=== PATIENT | male | born 1950 | race Caucasian/White ===

== ENCOUNTER 2017-11-27 12:20 | Emergency (ER) | payer OTHER ==
[~2017-11-27] VITALS: Ht 165.1 cm; Wt 100.0 kg
[~2017-11-27 12:20] MED LIST: AMOX875 PO; ENAL2.5 PO; FLON0.053; GUAI100S6 PO; INSU100V2 IJ; LOPI600T PO; NOVONP2 SQ
[2017-11-27 12:21] VITALS: BP 184/93; PULSE 98; RESP 18; TEMP 98.8; O2SAT 94
[2017-11-27 12:57] LABS: AUTOMATED NEUTROPHIL # 5.4 TH/MM3 (1.8-7.7); BASOPHIL % 0.5 % (0.0-2.0); EOSINOPHIL # 0.2 TH/MM3 (0-0.4); EOSINOPHIL % 2.6 % (0.0-4.0); HEMATOCRIT 37.3 % (39.0-51.0); HEMOGLOBIN 12.6 GM/DL (13.0-17.0); LYMPH % 17.6 % (9.0-44.0); LYMPHOCYTE # 1.3 TH/MM3 (1.0-4.8); MEAN CELL VOLUME 88.7 FL (80.0-100.0); MEAN CORPUSCULAR HGB CONC 33.8 % (32.0-36.0); MEAN PLATELET VOLUME 8.1 FL (7.0-11.0); MONO % 6.2 % (0.0-8.0); MONOCYTE # 0.5 TH/MM3 (0-0.9); NEUT % 73.1 % (16.0-70.0); PLATELET COUNT 295 TH/MM3 (150-450); RED CELL DISTRIBUTION WIDTH 13.5 % (11.6-17.2); WHITE BLOOD COUNT 7.4 TH/MM3 (4.0-11.0)
--- NOTE | 2017-11-27 13:00 | RADRPT ---
EXAM DATE/TIME: 11/27/2017 12:46 [facility] COMPARISON: No previous studies available for comparison. INDICATIONS : Shortness of breath. MEDICAL HISTORY : Hypertension. Hypercholesterolemia. Diabetes mellitus type II. SURGICAL HISTORY : None. ENCOUNTER: Initial ACUITY: 3 days PAIN SCORE: 0/10 LOCATION: Bilateral chest FINDINGS: Frontal and lateral view of the chest demonstrate some patchy opacities in the infrahilar region bila terally without focal consolidation. The remainder of the lungs are clear. The heart is normal in siz e. Both hemidiaphragms are well delineated. No evidence of new. Mild degenerative changes in the midt horacic spine. CONCLUSION: Mild air space opacities in the infrahilar region bilaterally without focal areas of consolidation. Al Dubon MD on November 27, 2017 at 12:56 Board Certified Radiologist. This report was verified electronically.
[2017-11-27 13:04] LABS: PROTHROMBIN TIME - PATIENT 10.3 SEC (9.8-11.6)
[2017-11-27 13:12] LABS: BICARBONATE 29.3 MEQ/L (21.0-32.0); BLOOD UREA NITROGEN 32 MG/DL (7-18); CALCIUM 9.8 MG/DL (8.5-10.1); CHLORIDE 93 MEQ/L (98-107); CREATININE 2.37 MG/DL (0.60-1.30); GLOMERULAR FILTRATION RATE 28 ML/MIN (>89); SODIUM (NA) 128 MEQ/L (136-145)
[2017-11-27 13:17] LABS: BILIRUBIN, URINE NEG (NEG); BLOOD, URINE TRACE (NEG); GLUCOSE,URINE 1000 mg/dL (NEG); KETONE, URINE NEG (NEG); NITRITE,URINE NEG (NEG); PH, URINE 5.5 (5.0-8.5); URINE COLOR LIGHT-YELLOW (YELLW/STRAW); URINE LEUKOCYTE ESTERASE NEG (NEG)
[2017-11-27 13:24] LABS: GLUCOSE,RANDOM 688 MG/DL (74-106)
[2017-11-27 13:32] LABS: TROPONIN I LESS THAN 0.02 NG/ML (0.02-0.05)
[2017-11-27 13:57] VITALS: BP 148/77; PULSE 88; RESP 15; O2SAT 95
[2017-11-27] MEDS ORDERED: SODIUM CHLOR 0.9% 1000 ML INJ 1,000 ML IV ONE ×3 (14:15)
[2017-11-27] MEDS ORDERED: CALCIUM CHLORIDE 10% SOLN 1 GRAM/10 ML SYR IV PUSH ONE (14:15)
[2017-11-27] MEDS ORDERED: INSULIN HUMAN REGULAR 1,000 UNITS/10 ML VIAL SQ ONE (14:15)
--- NOTE | 2017-11-27 14:28 | RADRPT ---
EXAM DATE/TIME: 11/27/2017 14:11 [facility] COMPARISON: No previous studies available for comparison. INDICATIONS : Intertittent memory loss for 5 months. RADIATION DOSE: 38.56 CTDIvol (mGy) MEDICAL HISTORY : Cardiovascular disease. Hypertension. Diabetes SURGICAL HISTORY : None. ENCOUNTER: Initial ACUITY: 4 - 6 months PAIN SCALE: 0/10 LOCATION: cranial TECHNIQUE: Multiple contiguous axial images were obtained of the head. Using automated exposure control and adj ustment of the mA and/or kV according to patient size, radiation dose was kept as low as reasonably a chievable to obtain optimal diagnostic quality images. DICOM format image data is available electro nically for review and comparison. FINDINGS: Noncontrast axial head CT demonstrates the ventricles to be normal in size and configuration with a n ormal sulcal pattern. No acute intracranial hemorrhage, acute cortical infarction, mass or midline sh ift is seen. Posterior fossa structures are unremarkable with the exception of a prominent cisterna m agna. Bone windows are unremarkable. CONCLUSION: 1. No evidence of acute intracranial pathology. No masses are identified. Viraj Mak MD on November 27, 2017 at 14:23 Board Certified Radiologist. This report was verified electronically.
[2017-11-27] MEDS ORDERED: GEMF600 PO (14:34)
[2017-11-27] MEDS ORDERED: LANTINJ SQ (14:34)
[2017-11-27] MEDS ORDERED: OMEP20TA93 PO (14:34)
[2017-11-27] MEDS ORDERED: LATA.005%O EACH EYE (14:34)
[2017-11-27] MEDS ORDERED: GABA300C5 PO (14:34)
[2017-11-27] MEDS ORDERED: LOSA100T PO (14:34)
[2017-11-27] MEDS ORDERED: ASPI81TA16 PO (14:34)
[2017-11-27] MEDS ORDERED: TERA5CAP3 PO (14:34)
[2017-11-27] MEDS ORDERED: NOVOINJ3 SQ ×2 (14:34)
[2017-11-27] MEDS ORDERED: MOBI7.5T PO (14:34)
[2017-11-27] MEDS ORDERED: MECL-62 PO (14:34)
[2017-11-27] MEDS ORDERED: BACL10TA PO (14:34)
--- NOTE | 2017-11-27 14:46 | PD ---
HPI Chief Complaint: Abnormal Results Time Seen by Provider: 14:07 Travel History International Travel<30 days: No Contact w/Intl Traveler<30days: No Traveled to known affect area: No History of Present Illness HPI 67-year-old male came to the emergency room with history of confusion. As per the patient his girlfriend brought him in but the girlfriend is currently not here. She left him in triage and went home. There was blood work initiated in triage before patient came to the emergency room. He has a history of diabetes. He has been very irritable and irate and not very forthcoming with history. Vital signs otherwise stable. PFSH Past Medical History Narrative Medical List of his past medical, surgical, social and family history is reviewed from the nursing note Hx Anticoagulant Therapy: Yes Cardiovascular Problems: Yes High Cholesterol: Yes Diabetes: Yes Hypertension: Yes Musculoskeletal: Yes Social History Alcohol Use: Yes (OCCASSIONAL) Tobacco Use: No Substance Use: No Allergies-Medications (Allergen,Severity, Reaction): Coded Allergies: No Known Allergies (Verified Adverse Reaction, Unknown, 11/27/17) Comments No known drug allergies. Reported Meds & Prescriptions Reported Meds & Active Scripts Active Reported Losartan (Losartan Potassium) 100 Mg Tab 100 Mg PO DAILY Xalatan Opth Drops (Latanoprost) 0.005% Drops 1 Drop EACH EYE HS Gabapentin 300 Mg Cap 300 Mg PO TID Lopid (Gemfibrozil) 600 Mg Tab 600 Mg PO BIDAC Take 30 minutes prior to breakfast and dinner Mobic (Meloxicam) 7.5 Mg Tab 7.5 Mg PO DAILY Aspirin Adult Low Strength (Aspirin) 81 Mg Tabdr 81 Mg PO DAILY Terazosin (Terazosin HCl) 5 Mg Cap 5 Mg PO HS Lantus Solostar Pen Inj (Insulin Glargine) 300 Unit/3 Ml Pen 80 Units SQ BID Novolog Flexpen Inj (Insulin Aspart) 300 Unit/3 Ml Pen 25 Units SQ AT NOON Novolog Flexpen Inj (Insulin Aspart) 300 Unit/3 Ml Pen 45 Units SQ IN THE AM AND THE PM Omeprazole 20 Mg Tab 20 Mg PO DAILY Baclofen 10 Mg Tab 10 Mg PO TID Meclizine (Meclizine HCl) 25 Mg Tab 25 Mg PO TID PRN Narrative Medication List of his home medications reviewed from the nursing note. Review of Systems Except as stated in HPI: all other systems reviewed are Neg Physical Exam Narrative GENERAL: Awake, confused, obese, no obvious distress SKIN: Focused skin assessment warm/dry. HEAD: Atraumatic. Normocephalic. EYES: Pupils equal and round. No scleral icterus. No injection or drainage. ENT: No nasal bleeding or discharge. Mucous membranes pink and moist. NECK: Trachea midline. No JVD. CARDIOVASCULAR: Regular rate and rhythm. No murmur appreciated. RESPIRATORY: No accessory muscle use. Clear to auscultation. Breath sounds equal bilaterally. GASTROINTESTINAL: Abdomen soft, non-tender, nondistended. Hepatic and splenic margins not palpable. MUSCULOSKELETAL: No obvious deformities. No clubbing. No cyanosis. No edema. NEUROLOGICAL: Awake and alert. No obvious cranial nerve deficits. Motor grossly within normal limits. Normal speech. PSYCHIATRIC: Appropriate mood and affect; insight and judgment normal. Data Data Last Documented VS Orders Orders Electrocardiogram (11/27/17 12:29) Basic Metabolic Panel (Bmp) (11/27/17 12:29) Complete Blood Count With Diff (11/27/17 12:29) Creatine Kinase (Cpk) (11/27/17 12:29) Prothrombin Time / Inr (Pt) (11/27/17 12:29) Act Partial Throm Time (Ptt) (11/27/17 12:29) Troponin I (11/27/17 12:29) Thyroid Stimulating Hormone (11/27/17 12:29) Urinalysis - C+S If Indicated (11/27/17 12:29) Ct Brain W/O Iv Contrast(Rout) (11/27/17 12:29) Chest, Pa & Lat (11/27/17 ) Sodium Chlor 0.9% 1000 Ml Inj (Ns 1000 M (11/27/17 14:15) Sodium Chlor 0.9% 1000 Ml Inj (Ns 1000 M (11/27/17 14:15) Sodium Chlor 0.9% 1000 Ml Inj (Ns 1000 M (11/27/17 14:15) Insulin Human Regular Inj (Novolin R Inj (11/27/17 14:15) Calcium Chloride Inj (Calcium Chloride I (11/27/17 14:15) Labs Laboratory Tests Test 11/27/17 12:40 11/27/17 12:45 White Blood Count 7.4 TH/MM3 Red Blood Count 4.20 MIL/MM3 Hemoglobin 12.6 GM/DL Hematocrit 37.3 % Mean Corpuscular Volume 88.7 FL Mean Corpuscular Hemoglobin 30.0 PG Mean Corpuscular Hemoglobin Concent 33.8 % Red Cell Distribution Width 13.5 % Platelet Count 295 TH/MM3 Mean Platelet Volume 8.1 FL Neutrophils (%) (Auto) 73.1 % Lymphocytes (%) (Auto) 17.6 % Monocytes (%) (Auto) 6.2 % Eosinophils (%) (Auto) 2.6 % Basophils (%) (Auto) 0.5 % Neutrophils # (Auto) 5.4 TH/MM3 Lymphocytes # (Auto) 1.3 TH/MM3 Monocytes # (Auto) 0.5 TH/MM3 Eosinophils # (Auto) 0.2 TH/MM3 Basophils # (Auto) 0.0 TH/MM3 CBC Comment DIFF FINAL Differential Comment Prothrombin Time 10.3 SEC Prothromb Time International Ratio 1.0 RATIO Activated Partial Thromboplast Time 25.2 SEC Blood Urea Nitrogen 32 MG/DL Creatinine 2.37 MG/DL Random Glucose 688 MG/DL Calcium Level 9.8 MG/DL Sodium Level 128 MEQ/L Potassium Level 5.8 MEQ/L Chloride Level 93 MEQ/L Carbon Dioxide Level 29.3 MEQ/L Anion Gap 6 MEQ/L Estimat Glomerular Filtration Rate 28 ML/MIN Total Creatine Kinase 181 U/L Troponin I LESS THAN 0.02 NG/ML Thyroid Stimulating Hormone 3rd Gen 3.360 uIU/ML Urine Color LIGHT-YELLOW Urine Turbidity CLEAR Urine pH 5.5 Urine Specific [place] 1.018 Urine Protein 30 mg/dL Urine Glucose (UA) 1000 mg/dL Urine Ketones NEG mg/dL Urine Occult Blood TRACE Urine Nitrite NEG Urine Bilirubin NEG Urine Urobilinogen LESS THAN 2.0 MG/DL Urine Leukocyte Esterase NEG Urine RBC 1 /hpf Urine WBC LESS THAN 1 /hpf Microscopic Urinalysis Comment CATH-CULT NOT IND MDM Medical Decision Making Medical Screen Exam Complete: Yes Emergency Medical Condition: Yes Medical Record Reviewed: Yes Interpretation(s) Twelve-lead EKG was reviewed by me. Normal sinus rhythm, left axis deviation, right bundle branch block. Heart rate of 85 bpm. Differential Diagnosis HONK, acute renal failure, altered mental status Narrative Course 3:04 PM patient was given 2 L of IV fluid bolus and 10 units of insulin subcu. Potassium is elevated and renal function is poor. I have ordered for calcium in addition for the potassium to stabilize till the insulin drives the potassium back into the cell. I would like to go ahead and admit this patient may be for observation to bring the electrolytes in the glucose back to normal. Awaiting for the admitting team to call back. 3:51 PM was just told by the nurse that the patient eloped from the room. He possibly still has the IV in place. Security and police has been contacted. 3:55 PM patient and his adult ride is back and he wants to leave. Patient currently is in full capacity to make decisions for himself. He understands the consequences of leaving without getting treated. Procedures EKG Prior to Arrival: No Diagnosis Primary Impression: Diabetic hyperosmolar non-ketotic state Additional Impression: Renal failure (ARF), acute on chronic Qualified Codes: N17.9 - Acute kidney failure, unspecified; N18.9 - Chronic kidney disease, unspecified Disposition: 07 AGAINST MEDICAL ADVICE Condition: Serious Lj Swift MD Nov 27, 2017 14:46
--- NOTE | 2017-11-28 13:03 | EKG ---
Date Performed: 11/27/2017 Time Performed: 12:34:44 PTAGE: 67 years EKG: Sinus rhythm RIGHT BUNDLE BRANCH BLOCK ABNORMAL ECG NO PREVIOUS TRACING DOCTOR: Felipe Cho Interpretating Date/Time 11/28/2017 12:55:59
== END 2017-11-27 16:05 | disposition left against medical advice (07) ==
LOC: NEPE 12:20
DX: E11.00 Type 2 diabetes mellitus with hyperosmolarity without nonketotic hyperglycemic-hyperosmolar coma (NKHHC) (principal); Z53.21 Procedure and treatment not carried out due to patient leaving prior to being seen by health care provider; N17.9 Acute kidney failure, unspecified; R94.31 Abnormal electrocardiogram [ECG] [EKG]; R45.4 Irritability and anger; I10 Essential (primary) hypertension; Z79.01 Long term (current) use of anticoagulants
CPT/HCPCS: 70450; 71046; 80048; 81001; 82550; 84443; 84484; 85025; 85610; 85730; 93005; 96374; 99285; J1815; J7030